=== PATIENT | female | born 1980 | race Caucasian/White ===

== ENCOUNTER 2020-10-24 08:01 | Emergency (ER) | payer OTHER, BC, SELFPAY ==
[2020-10-24 08:05] VITALS: BP 145/84; PULSE 101; RESP 16; TEMP 37.1; O2SAT 98; BMI 37.4
--- NOTE | 2020-10-24 08:11 | [facility].EDGENADL ---
ED Disposition Clinical Impression: Scalp contusion Qualifiers: Encounter type: initial encounter Qualified Code(s): S00.03XA - Contusion of scalp, initial encounter Cervical strain Qualifiers: Encounter type: initial encounter Qualified Code(s): S16.1XXA - Strain of muscle, fascia and tendon at neck level, initial encounter Contusion, buttock Qualifiers: Encounter type: initial encounter Qualified Code(s): S30.0XXA - Contusion of lower back and pelvis, initial encounter Disposition: Home, Self-Care Condition on Discharge: Good Instructions: DI for Contusion, How to Prevent Falls, DI for Closed Head Injury, DI for Neck Sprain Additional Instructions: Tylenol and ice for pain. Additional instructions for HEAD INJURY: See your physician as soon as possible for further evaluation. Return immediately if severe headache, vomiting, problems with vision or speech, numbness or weakness of the extremities, or severe neck pain. Referrals: Gamal Eugene MD [Primary Care Provider] - Forms: Work/School Release - Critical Care Critical Care Time: No Attestation: On , the high probability of a clinically significant, sudden or life threatening deterioration of the following system(s) required my full and direct attention, intervention and personal management. The time I documented below is in addition to time spent performing reported procedures but includes the following listed in this critical care notation. Medical Decision Making - [facility] Inquiry Pt receiving controlled substance: No Vital Signs: 10/24/20 08:05 10/24/20 08:36 Temperature 98.8 F Temperature Source Oral Pulse Rate [Right Radial] 101 H 82 Respiratory Rate 16 Blood Pressure [Right Arm] 145/84 H 128/84 Blood Pressure Mean [Right Arm] 104 98 Blood Pressure Source [Right Arm] Automatic Cuff Automatic Cuff Blood Pressure Position [Right Arm] Sitting Sitting 02 Sat by Pulse Oximetry 98 98 Oxygen Delivery Method Room Air Room Air - Radiology Data #1 Image(s): Pelvis Image Reviewed: Yes I have reviewed radiologist's interpretation PROCEDURE: XR PELVIS 1-2V CLINICAL INDICATION: fall Posttraumatic pain COMPARISON: No exams were available for comparison TECHNIQUE: XR Pelvis AP View FINDINGS: No fracture or dislocation is evident. No significant degenerative change. No lytic or blastic change. IMPRESSION: No acute findings. Dictated by: Go Hendrix MD 10/24/2020 09:30 Go Hendrix MD in [facility] 10/24/2020 09:30 - CT Data CT Scan: Head, C-Spine Time Received: 09:[address] Reviewed: Yes: I have viewed the radiologist's interpretation Findings Narrative: PROCEDURE: CT CERVICAL SPINE WO CON CLINICAL INDICATION: fall Neck injury with pain, contusion/abrasion or hematoma, cervical sprain/strain the COMPARISON: No exams were available for comparison TECHNIQUE: Axial images obtained with sagittal and coronal reformats. All CT scans at the facility use one or more dose reduction, viz: automated exposure control, ma/kV adjustment per patient size (including targeted exams where dose is matched to indication, i.e. head), or iterative reconstruction technique. Axial spiral CT scanning performed of the cervical spine beginning at the base of the skull and continuing to the upper T-spine. 3-D multiplanar reconstruction with 3-D manipulation of volumetric data set in image rendering was completed by the radiologist and/or technologist with the supervision of the radiologist on independent workstation. FINDINGS: Normal alignment. No acute fracture or dislocation evident. There is some mild facet hypertrophic change on the left at C4-C5. There is straightening of the cervical lordosis. Lung apices are clear. There are few scattered small cervical lymph nodes IMPRESSION: 1. No acute fracture. 2. There is straightening/reversal of the normal lordosis which may be due to patient p
--- NOTE | 2020-10-24 08:16 | XR_ITS ---
PROCEDURE: XR PELVIS 1-2V CLINICAL INDICATION: fall Posttraumatic pain COMPARISON: No exams were available for comparison TECHNIQUE: XR Pelvis AP View FINDINGS: No fracture or dislocation is evident. No significant degenerative change. No lytic or blastic change. IMPRESSION: No acute findings. Dictated by: Go Hendrix MD 10/24/2020 09:30 Go Hendrix MD in [facility] 10/24/2020 09:30
--- NOTE | 2020-10-24 08:16 | CT_ITS ---
PROCEDURE: CT HEAD/BRAIN WO CON CLINICAL INDICATION: fall Head injury with headache/pain, contusion, abrasion or hematoma, dizziness, injury to the back of the head COMPARISON: No exams were available for comparison TECHNIQUE: Axial images obtained. All CT scans at the facility use one or more dose reduction, viz: automated exposure control, ma/kV adjustment per patient size (including targeted exams where dose is matched to indication, i.e. head), or iterative reconstruction technique. FINDINGS: No midline shift, mass effect, intracranial hemorrhage, hydrocephalus, or extra-axial fluid collection is evident. There is subtle decreased attenuation within the left occipital lobe. This is of questionable clinical significance. Patient's head is slightly rotated in CT gantry which may account for this finding. The calvarium has an unremarkable appearance. No mastoid effusion. No sinus air-fluid level. IMPRESSION: 1. No definite acute finding. 2. Subtle decreased attenuation within the left occipital lobe of questionable clinical significance Dictated by: Go Hendrix MD 10/24/2020 09:26 Go Hendrix MD in [facility] 10/24/2020 09:26
--- NOTE | 2020-10-24 08:17 | CT_ITS ---
PROCEDURE: CT CERVICAL SPINE WO CON CLINICAL INDICATION: fall Neck injury with pain, contusion/abrasion or hematoma, cervical sprain/strain the COMPARISON: No exams were available for comparison TECHNIQUE: Axial images obtained with sagittal and coronal reformats. All CT scans at the facility use one or more dose reduction, viz: automated exposure control, ma/kV adjustment per patient size (including targeted exams where dose is matched to indication, i.e. head), or iterative reconstruction technique. Axial spiral CT scanning performed of the cervical spine beginning at the base of the skull and continuing to the upper T-spine. 3-D multiplanar reconstruction with 3-D manipulation of volumetric data set in image rendering was completed by the radiologist and/or technologist with the supervision of the radiologist on independent workstation. FINDINGS: Normal alignment. No acute fracture or dislocation evident. There is some mild facet hypertrophic change on the left at C4-C5. There is straightening of the cervical lordosis. Lung apices are clear. There are few scattered small cervical lymph nodes IMPRESSION: 1. No acute fracture. 2. There is straightening/reversal of the normal lordosis which may be due to patient positioning or muscle spasm. Dictated by: Go Hendrix MD 10/24/2020 09:29 Go Hendrix MD in [facility] 10/24/2020 09:29
--- NOTE | 2020-10-24 08:22 | PC.NURSE ---
notified of orders on pt
[2020-10-24 08:36] VITALS: BP 128/84; PULSE 82; O2SAT 98
--- NOTE | 2020-10-24 09:12 | PC.NURSE ---
Pt with rad.
[2020-10-24 10:08] VITALS: BP 122/65; PULSE 77; RESP 18; TEMP 37.1; O2SAT 98
== END 2020-10-24 10:08 | disposition home or self-care (01) ==
PROVIDERS: Emergency Provider Emergency Medicine; PCP Family Medicine
DX: S00.03XA Contusion of scalp, initial encounter (principal); S16.1XXA Strain of muscle, fascia and tendon at neck level, initial encounter; S30.0XXA Contusion of lower back and pelvis, initial encounter; W00.0XXA Fall on same level due to ice and snow, initial encounter; Y92.014 Private driveway to single-family (private) house as the place of occurrence of the external cause
CPT/HCPCS: 70450; 72125; 72170; 99282

== ENCOUNTER 2024-07-24 08:22 | Outpatient (CLI) | payer BC, SELFPAY ==
[2024-07-24 08:34] LABS: Microscopic, Urine URINE MICROSCOPIC (MICROSCOPIC)
[2024-07-24 09:25] LABS: Basophils % 0.6 % (0.1-2.0); Eosinophils # 0.1 K/mm3 (0.0-0.4); Eosinophils % 0.7 % (0.1-12.0); Hematocrit 36.4 % (37.0-47.0); Hemoglobin 12.1 g/dL (12.2-16.2); Lymphocytes # 2.7 K/mm3 (0.7-4.5); Lymphocytes % 38.4 % (10-50); Mean Corpuscular HGB Conc 33.3 g/dL (31.8-35.4); Mean Corpuscular Hemoglobin 25.9 pg (27.0-31.2); Mean Corpuscular Volume 77.6 fl (81-99); Mean Platelet Volume 8.6 fl (7.4-10.4); Monocytes # 0.4 K/mm3 (0.1-1.0); Monocytes % 5.4 % (1.7-9.3); Neutrophils # 3.9 K/mm3 (1.8-7.8); Platelet Count 292 K/mm3 (142-424); Red Blood Count 4.69 M/mm3 (4.20-5.40); Red Cell Distribution Width 15.7 % (11.5-17.5); White Blood Count 7.1 K/mm3 (4.8-10.8)
[2024-07-24 10:01] LABS: Alanine Aminotransferase 15 U/L (12-78); Albumin Level 3.7 g/dl (3.5-5.0); Albumin/Globulin Ratio 1.3 (1.1-1.8); Alkaline Phosphatase 68 U/L (38-126); Anion Gap 11.7 mEq/L (5-15); Aspartate Amino Transferase 23 U/L (14-36); Bilirubin,Total 0.7 mg/dl (0.2-1.3); Blood Urea Nitrogen 15 mg/dl (7-17); Calcium 8.8 mg/dl (8.4-10.2); Carbon Dioxide 28 mmol/L (22.0-30.0); Chloride 106 mmol/L (98-107); Chol/HDL Ratio 3.8 (1-3.5); Cholesterol 169 mg/dl (140-200); Estimated Glomerular Filt Rate 79 ml/min (>60); GFR (African American) 95 ML/MIN (>60); Globulin 2.8 g/dL (1.3-3.2); Glucose 86 mg/dl (74-100); HDL Cholesterol 45 mg/dl (40-60); Potassium 4.7 mmoL/L (3.5-5.1); Sodium 141 mmol/L (136-145); Total Protein,Serum 6.5 g/dl (6.3-8.2); Triglycerides 44 mg/dl (30-150); VLDL Cholesterol 9 mg/dL (0-40)
[2024-07-24 10:12] LABS: Direct LDL Cholesterol 111.07 mg/dL (100-129)
[2024-07-24 10:14] LABS: Appearance,Urine CLEAR (Clear); Bilirubin,Urine Negative (Negative); Blood, Urine Negative (Negative); Color,Urine YELLOW (Yellow); Glucose,Urine (UA) Negative (Negative); Ketones,Urine Negative (Negative); Leukocyte Esterase,Urine TRACE (Negative); Nitrate,Urine Negative (Negative); PH,Urine 6.5 (5.0-8.5); Protein,Urine Negative (Negative); Specific Gravity, Urine 1.025 (1.005-1.030)
[2024-07-24 10:17] LABS: 25-OH Vitamin D, Total 30.2 ng/mL (30-100)
[2024-07-24 10:18] LABS: Free T4 (Free Thyroxine) 0.93 ng/dl (0.78-2.19)
[2024-07-24 10:31] LABS: Bacteria,Urine 1+ /lpf; Hemoglobin A1C 5.4 % (4.0-6.0); RBC,Urine Occasional #/hpf (0-3); WBC,Urine Occasional #/hpf (0-3)
[2024-07-24 10:47] LABS: Iron 90 ug/dL (37-170)
[2024-07-24 10:58] LABS: Vitamin B12 742 pg/mL (239-931)
[2024-07-24 10:59] LABS: Thyroid Stimulating Hormone 0.49 uIU/mL (0.465-4.68)
[2024-07-24 11:00] LABS: Total Iron Binding Capacity 489 ug/dL (265-497)
[2024-07-24 11:22] LABS: Ferritin 5.28 ng/ml (6.24-137)
[2024-07-24 12:17] LABS: HIV (1&2) Antibody Rapid NONREACTIVE (NONREACTIVE)
[2024-07-25 11:13] LABS: HCV Ab Non Reactive (Non Reactive)
== END 2024-07-24 23:59 | disposition home or self-care (01) ==
PROVIDERS: PCP Nurse Practitioner Family; Visit Provider Nurse Practitioner Family
DX: R53.83 Other fatigue (principal); Z13.1 Encounter for screening for diabetes mellitus; E28.2 Polycystic ovarian syndrome; Z13.220 Encounter for screening for lipoid disorders; Z11.59 Encounter for screening for other viral diseases; Z11.4 Encounter for screening for human immunodeficiency virus [HIV]; E66.01 Morbid (severe) obesity due to excess calories; Z68.42 Body mass index [BMI] 45.0-49.9, adult; Z98.84 Bariatric surgery status
CPT/HCPCS: 36415; 80050; 80053; 80061; 81001; 82306; 82607; 82728; 83036; 83540; 83550; 84439; 84443; 85025; 86803; 87086; 87088; 87186; 87389

== ENCOUNTER 2024-08-05 15:40 | Outpatient (CLI) | payer BC, SELFPAY ==
--- NOTE | 2024-08-05 15:41 | MM_ITS ---
PROCEDURE INFORMATION: Exam: Bilateral Screening 3D Mammography Exam date and time: 08/05/2024 3:49 PM Age: 44 years old Clinical indication: Baseline. No family history of breast cancer. TECHNIQUE: Imaging protocol: Bilateral Screening tomosynthesis and 2D mammography including computer-aided detection (CAD) when performed. COMPARISON: No relevant prior studies available. FINDINGS: MAMMOGRAPHY: Breast composition: The breasts are almost entirely fatty. Mass: None. Architectural distortion: None. Calcifications: No suspicious calcifications. Asymmetric density: None. Skin thickening: None. Axillary adenopathy: None. IMPRESSION: No mammographic evidence of malignancy. Annual screening is recommended unless otherwise clinically indicated. ASSESSMENT: BI-RADS Category 1: Negative.
== END 2024-08-05 23:59 | disposition home or self-care (01) ==
LOC: RAD 15:41
PROVIDERS: PCP Nurse Practitioner Family; Visit Provider Nurse Practitioner Family
DX: Z12.31 Encounter for screening mammogram for malignant neoplasm of breast (principal)
CPT/HCPCS: 77063; 77067

== ENCOUNTER 2024-10-04 11:44 | Outpatient (CLI) | payer BC, SELFPAY | END 2024-10-04 23:59 | disposition home or self-care (01) | LOC: LAB.DROPOF 10-07 11:45 | PROVIDERS: PCP Nurse Practitioner Family; Visit Provider Nurse Practitioner Family | DX: N39.0 Urinary tract infection, site not specified (principal) | CPT/HCPCS: 87086; 87088; 87186 ==

== ENCOUNTER 2025-07-11 15:45 | Outpatient (CLI) | payer BC, SELFPAY ==
--- NOTE | 2025-07-11 16:00 | US_ITS ---
PROCEDURE: US TRANSVAGINAL CLINICAL INDICATION: AUB COMPARISON: No exams were available for comparison FINDINGS: Transvaginal sonographic images of the pelvis were obtained. UTERUS: 9.1cm x 5.7 cmx 4.2cm anteverted with a combined endometrial thickness of 5.3mm. There is a small amount of fluid within the cervical canal. There is an IUD within the uterine cavity in the correct position. scar is seen. LEFT OVARY: 2.5cmx3.3cmx3.8cm with a volume of 16.2ml. There is a dominant follicle measuring 2.0 cm. There are several other smaller follicles. RIGHT OVARY: 1.5cmx 1.8 cmx2.1cm with a volume of 2.9ml. Both ovaries are seen and appear normal. Doppler flow to both ovaries are seen. There is no fluid in the cul-de-sac. There is trace fluid within the peritoneal cavity at the fundus of the uterus. IMPRESSION: 1. Anteverted uterus normal in shape and slightly bulky in size. The endometrium measures 5.3 mm. 2. There is an IUD within the uterine cavity in the correct position. 3. Both ovaries are seen and appear normal. The left ovary contains a dominant follicle measuring 2.0 cm. 4. There is no fluid in the cul-de-sac. 5. There is trace fluid within the peritoneal cavity at the fundus of the uterus. Dictated by: Gabriel Tyler MD 07/11/2025 16:52 Gabriel Tyler MD in [facility] 07/11/2025 16:52
== END 2025-07-11 23:59 | disposition home or self-care (01) ==
LOC: RAD 15:46
PROVIDERS: PCP Nurse Practitioner Family; Visit Provider Obstetrics & Gynecology
DX: N83.02 Follicular cyst of left ovary (principal); N85.4 Malposition of uterus; Z97.5 Presence of (intrauterine) contraceptive device
CPT/HCPCS: 76830